=== PATIENT | female | born 1985 | race Asian ===

== ENCOUNTER 2017-10-04 01:08 | Emergency (ER) | payer MEDICARE ==
[~2017-10-04] VITALS: Ht 165.1 cm; Wt 89.4 kg
[2017-10-04] MEDS ORDERED: TRAMADOL HCL 50 MG TAB PO ONE (01:15)
[2017-10-04] MEDS ORDERED: ACETAMINOPHEN/CODEINE 300MG - 30MG TAB PO ONE (01:30)
--- NOTE | 2017-10-04 01:53 | Diagnostic Imaging Report ---
EXAM: CHEST 2 VIEWS, PA and lateral INDICATION: Left lateral rib pain after fall COMPARISON: None FINDINGS: LINES/TUBES: None LUNGS: No consolidations or edema. PLEURA: No effusions or pneumothorax. HEART AND MEDIASTINUM: Normal size and contour. BONES AND SOFT TISSUES: No acute findings. IMPRESSION: No acute thoracic abnormality. Signed by: Dr. Yusra Pool M.D. on 10/04/2017 1:49 AM
[2017-10-04 03:09] VITALS: BP 101/60
== END 2017-10-04 03:25 | disposition home or self-care (01) ==
LOC: ER 01:08
DX: S20.212A Contusion of left front wall of thorax, initial encounter (principal); S50.11XA Contusion of right forearm, initial encounter; S70.01XA Contusion of right hip, initial encounter; S40.012A Contusion of left shoulder, initial encounter; R55 Syncope and collapse; W18.39XA Other fall on same level, initial encounter; Y92.008 Other place in unspecified non-institutional (private) residence as the place of occurrence of the external cause; G47.411 Narcolepsy with cataplexy
CPT/HCPCS: 71046; 99283

== ENCOUNTER 2018-03-07 12:40 | Emergency (ER) | payer MEDICARE ==
[~2018-03-07] VITALS: Ht 165.1 cm; Wt 89.4 kg
--- OUTSIDE RECORDS SUMMARY | 2018-03-07 12:43 | XMS REPORT ---
Author Author Admin, [place] Organization [facility] Address [address] [place] [address] Phone Allergies, Adverse Reactions, Alerts Allergy Name Reaction Description Start Date Severity Status Provider No Known Allergies Bárbara Chester [employer]ER Conditions or Problems Problem Name Problem Code Onset Date Status Entry Date Provider Comment Standard Description Annotate Fibromyalgia 729.1 Active Mikayla Claudio D.O. Myalgia and myositis, unspecified Fall risk V15.88 Active Gema Monsivais MD Personal history of fall Restless leg syndrome 333.94 Active Jamil Lopez MD Restless legs syndrome (RLS) Breast pain, left 611.71 Active Kalee Kelly MD Mastodynia IUD removal V25.12 Active Kalee Kelly MD Encounter for removal of intrauterine contraceptive device Abnormal uterine bleeding 626.9 Active Kalee Kelly MD Unspecified disorders of menstruation and other abnormal bleeding from female genital tract Pelvic pain 625.9 Active Kalee Kelly MD Unspecified symptom associated with female genital organs Plantar fasciitis 728.71 Active Tawanda Kay MD Plantar fascial fibromatosis Weight gain 783.1 Active Kalee Kelly MD Abnormal weight gain BMI 35.0-35.9 Active Zoey Zimmer MD Body Mass Index 35.0-35.9, adult Knee pain, left 719.46 Active Zoey Zimmer MD Pain in joint involving lower leg Obesity Active Zoey Zimmer MD Obesity, unspecified IUD surveillance V25.42 Active Janie Rosen MD Encounter for surveillance of intrauterine contraceptive device Financial problems V60.2 Active Claudia Schwartz MD Inadequate material resources 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 Hirsutism 704.1 Active Claudia Schwartz MD Hirsutism 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, 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 Claudia Schwartz MD 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 Bipolar 1 disorder, depressed, moderate 296.52 Active Christine Layton MD Bipolar I disorder, most recent episode (or current) depressed, moderate IUD insertion ICD-V25.11 Inactive Claudia Schwartz MD SCREENING EXAMINATION FOR VENEREAL DISEASE ICD-V74.5 Inactive Claudia Schwartz MD Sexual activity, high risk ICD-V69.2 Inactive Claudia Schwartz MD Bronchitis, acute ICD-466.0 Inactive Janie Rosen MD Skin lesion ICD-709.9 Inactive Janie Rosen MD Shoulder joint pain, left ICD-719.41 Inactive Claudia Schwartz MD HEADACHE ICD-784.0 Inactive Claudia Schwartz MD NAUSEA AND VOMITING ICD-787.01 Inactive Claudia Schwartz MD SUPERVISION, OTHER NORMAL ICD-V22.1 Inactive Claudia Schwartz MD IUD insertion V25.11 Resolved Claudia Schwartz MD Encounter for insertion of intrauterine contraceptive device SCREENING EXAMINATION FOR VENEREAL DISEASE V74.5 Resolved Claudia Schwartz MD Screening examination for venereal disease Sexual activity, high risk V69.2 Resolved Claudia Schwartz MD High-risk sexual behavior Bronchitis, acute 466.0 Resolved Janie oRsen MD Acute bronchitis Skin lesion 709.9 Resolved Janie Rosen MD Unspecified disorder of skin and subcutaneous tissue of back Shoulder joint pain, left 719.41 Resolved Claudia Schwartz MD Pain in joint involving shoulder region HEADACHE 784.0 Resolved Claudia Schwartz MD Headache NAUSEA AND VOMITING 787.01 Resolved Claudia Schwartz MD Nausea with vomiting SUPERVISION, OTHER NORMAL V22.1 Resolved Claudia Schwartz MD Supervision of other normal Medication List Medication Instructions Start Date Stop Date Generic Name NDC Status Provider Patient Instruction SCOOTER Mobility Scooter SCOOTER Active Claudia Schwartz MD Active RETIN-A 0.1 % EXTERNAL CREAM apply to skin nightly TRETINOIN 71611613467 Active Claudia Schwartz MD Active ADDERALL 20 MG ORAL TABLET one tab TID AMPHETAMINE-DEXTROAMPHETAMINE 76513646846 Active Christine Layton MD Active HANDICAPP PLACARD use as directed for narcolepsy precautions HANDICAPP PLACARD Active Claudia Schwartz MD Active XYREM 500 MG/ML ORAL SOLUTION nightly SODIUM OXYBATE 33017607578 Active Claudia Schwartz MD Active MELOXICAM 7.5 MG ORAL TABLET take 1 tablet with meal once daily MELOXICAM 7.5 MG ORAL TABLET 711809 MELOXICAM Inactive REQUIP 0.5 MG ORAL TABLET take one tablet every night for 7 days take 2 tablet every night for next 7 days. Take 3 tablet every night for next 7 days REQUIP 0.5 MG ORAL TABLET 265860 ROPINIROLE HCL Inactive NAPROXEN 500 MG ORAL TABLET 1 by mouth twice a day as needed for pain and inflammation NAPROXEN 500 MG ORAL TABLET 850366 NAPROXEN Inactive REQUIP 0.25 MG ORAL TABLET Take 1 tablet once daily at night REQUIP 0.25 MG ORAL TABLET 081272 ROPINIROLE HCL Inactive VANIQA 13.9 % EXTERNAL CREAM apply BID VANIQA 13.9 % EXTERNAL CREAM EFLORNITHINE HCL Inactive IBUPROFEN 600 MG ORAL TABLET 1 By Mouth Every 8 hours As Needed pain IBUPROFEN 600 MG ORAL TABLET 509098 IBUPROFEN Inactive PROZAC 10 MG ORAL CAPSULE One capsule daily along with 20 mg cap for a total of 30 mg daily. PROZAC 10 MG ORAL CAPSULE 778052 FLUOXETINE HCL Inactive [facility] PERMETHRIN 1 % EXTERNAL LOTION Shampoo and leave on for 10 minutes then rinse, can repeat 1 week later [facility] PERMETHRIN 1 % EXTERNAL LOTION PERMETHRIN Inactive AUGUSTL 03/31 1-20 MG-MCG ORAL TABLET take one a tablet 03/31 1-20 MG-MCG ORAL TABLET 3074206 NORETHINDRONE ACET-ETHINYL EST Inactive PROZAC 40 MG ORAL CAPSULE One tablet daily. PROZAC 40 MG ORAL CAPSULE 293408 FLUOXETINE HCL Inactive DOXYCYCLINE HYCLATE 100 MG ORAL CAPSULE take one tablet daily DOXYCYCLINE HYCLATE 100 MG ORAL CAPSULE 3514315 DOXYCYCLINE HYCLATE Inactive PLAN B ONE-STEP 1.5 MG ORAL TABLET one tablet for one dose as soon as possible PLAN B ONE-STEP 1.5 MG ORAL TABLET 171486 LEVONORGESTREL Inactive AZITHROMYCIN 250 MG ORAL TABLET 2 tablets by mouth on day one then one tablet by mouth each day for a total of 5 days AZITHROMYCIN 250 MG ORAL TABLET 149526 AZITHROMYCIN Inactive NUVIGIL 250 MG ORAL TABLET one By Mouth daily NUVIGIL 250 MG ORAL TABLET 907375 ARMODAFINIL Inactive QC LORATADINE-D 10-240 MG ORAL TABLET EXTENDED RELEASE 24 HOUR one Tab Po daily for congestion QC LORATADINE-D 10-240 MG ORAL TABLET EXTENDED RELEASE 24 HOUR LORATADINE-PSEUDOEPHEDRINE Inactive TESSALON PERLES 100 MG ORAL CAPSULE 1 by mouth 3 times a day as needed for cough TESSALON PERLES 100 MG ORAL CAPSULE 093514 BENZONATATE Inactive LIDOCAINE 5 % EXTERNAL PATCH Apply daily as needed for pain LIDOCAINE 5 % EXTERNAL PATCH 9407022 LIDOCAINE Inactive MOBIC 15 MG ORAL TABLET 1 by mouth daily x 2 weeks MOBIC 15 MG ORAL TABLET 243606 MELOXICAM Inactive MIRAPEX 0.125 MG ORAL TABLET One nightly. MIRAPEX 0.125 MG ORAL TABLET 373919 PRAMIPEXOLE DIHYDROCHLORIDE Inactive RISPERIDONE 2 MG ORAL TABLET Take half a tablet nightly for a week, then increase to one tablet nightly. RISPERIDONE 2 MG ORAL TABLET 087018 RISPERIDONE Inactive CITRANATAL ASSURE 35-1 & 300 MG ORAL Take 1 tablet and 1 gelcap every day CITRANATAL ASSURE 35-1 & 300 MG ORAL PRENAT W/O [id number] Inactive DICLEGIS 10-10 MG ORAL TABLET DELAYED RELEASE Take 2 tablets at bedtime, may add 1 more tablet in the mornings if it does not work after 3 days DICLEGIS 10-10 MG ORAL TABLET DELAYED RELEASE DOXYLAMINE-PYRIDOXINE Inactive SELECT-OB+DHA 29-1 & 250 MG ORAL 1 tab and 1 gel cap by mouth once a day SELECT-OB+DHA 29-1 & 250 MG ORAL [id number] Inactive TYLENOL 325 MG ORAL TABLET take 2 tablets Three Times a Day As Needed for headache TYLENOL 325 MG ORAL TABLET 883810 ACETAMINOPHEN Inactive MELOXICAM 7.5 MG ORAL TABLET take 1 tablet with meal once daily MELOXICAM 86061524897 No Longer Active Daphnie Martinez MD (res) Active REQUIP 0.5 MG ORAL TABLET take one tablet every night for 7 days take 2 tablet every night for next 7 days. Take 3 tablet every night for next 7 days ROPINIROLE HCL 72448995952 No Longer Active Daphnie Martinez MD (res) Active NAPROXEN 500 MG ORAL TABLET 1 by mouth twice a day as needed for pain and inflammation NAPROXEN 56235633311 No Longer Active Daphnie Martinez MD (res) Active REQUIP 0.25 MG ORAL TABLET Take 1 tablet once daily at night ROPINIROLE HCL 33326657300 No Longer Active Gema Monsivais MD Active VANIQA 13.9 % EXTERNAL CREAM apply BID EFLORNITHINE HCL 79113397601 No Longer Active Gema Monsivais MD Active IBUPROFEN 600 MG ORAL TABLET 1 By Mouth Every 8 hours As Needed pain IBUPROFEN 88882133900 No Longer Active Gema Monsivais MD Active PROZAC 10 MG ORAL CAPSULE One capsule daily along with 20 mg cap for a total of 30 mg daily. FLUOXETINE HCL 54006795904 No Longer Active Christine Layton MD Active [facility] PERMETHRIN 1 % EXTERNAL LOTION Shampoo and leave on for 10 minutes then rinse, can repeat 1 week later PERMETHRIN 28326232917 No Longer Active Gema Monsivais MD Active JUNEL 03/31 1-20 MG-MCG ORAL TABLET take one a tablet NORETHINDRONE ACET-ETHINYL EST 73033938949 No Longer Active Gema Monsivais MD Active PROZAC 40 MG ORAL CAPSULE One tablet daily. FLUOXETINE HCL 29948168715 No Longer Active Gema Monsivais MD Active DOXYCYCLINE HYCLATE 100 MG ORAL CAPSULE take one tablet daily DOXYCYCLINE HYCLATE 88399597183 No Longer Active Claudia Schwartz MD Active PLAN B ONE-STEP 1.5 MG ORAL TABLET one tablet for one dose as soon as possible LEVONORGESTREL 69935649145 No Longer Active Claudia Schwartz MD Active AZITHROMYCIN 250 MG ORAL TABLET 2 tablets by mouth on day one then one tablet by mouth each day for a total of 5 days AZITHROMYCIN 54018723149 No Longer Active Claudia Schwartz MD Active NUVIGIL 250 MG ORAL TABLET one By Mouth daily ARMODAFINIL 39140290986 No Longer Active Gema Monsivais MD Active QC LORATADINE-D 10-240 MG ORAL TABLET EXTENDED RELEASE 24 HOUR one Tab Po daily for congestion LORATADINE-PSEUDOEPHEDRINE 57112605206 No Longer Active Claudia Schwartz MD Active TESSALON PERLES 100 MG ORAL CAPSULE 1 by mouth 3 times a day as needed for cough BENZONATATE 82382039160 No Longer Active Claudia Schwartz MD Active LIDOCAINE 5 % EXTERNAL PATCH Apply daily as needed for pain LIDOCAINE 83914325335 No Longer Active Claudia Schwartz MD Active MOBIC 15 MG ORAL TABLET 1 by mouth daily x 2 weeks MELOXICAM 95244935062 No Longer Active Gema Monsivais MD Active MIRAPEX 0.125 MG ORAL TABLET One nightly. PRAMIPEXOLE DIHYDROCHLORIDE 92345403571 No Longer Active Claudia Schwartz MD Active ABILIFY 20 MG ORAL TABLET Take one tablet daily. ARIPIPRAZOLE 98497947759 No Longer Active Christine Layton MD Active RISPERIDONE 2 MG ORAL TABLET Take half a tablet nightly for a week, then increase to one tablet nightly. RISPERIDONE 13091612613 No Longer Active Gema Monsivais MD Active CITRANATAL ASSURE 35-1 & 300 MG ORAL Take 1 tablet and 1 gelcap every day PRENAT W/O B-[id number]-[id number]-DHA 05083691821 No Longer Active Jose Wagner NP Active DICLEGIS 10-10 MG ORAL TABLET DELAYED RELEASE Take 2 tablets at bedtime, may add 1 more tablet in the mornings if it does not work after 3 days DOXYLAMINE-PYRIDOXINE 50970163402 No Longer Active Christine Layton MD Active SELECT-OB+DHA 29-1 & 250 MG ORAL 1 tab and 1 gel cap by mouth once a day OPH-YRWGUU-QN-DHA 48563934037 No Longer Active Christine Layton MD Active TYLENOL 325 MG ORAL TABLET take 2 tablets Three Times a Day As Needed for headache ACETAMINOPHEN 47490862754 No Longer Active Christine Layton MD Active Vital Signs Date Name Value Unit Range Description blood pressure, diastolic 73 mm[Hg] BP batres blood pressure, systolic 104 mm[Hg] BP sys height E&M 65 [in_us] Bdy height pulse rate E&M 84 /min Heart rate respiratory rate E&M 18 /min Resp rate temperature E&M 98.8 [degF] Body temperature weight E&M 210.20 [lb_av] Weight Measured blood pressure, diastolic 70 mm[Hg] BP batres blood pressure, systolic 112 mm[Hg] BP sys height E&M 65 [in_us] Bdy height pulse rate E&M 85 /min Heart rate respiratory rate E&M 18 /min Resp rate temperature E&M 98.3 [degF] Body temperature weight E&M 207 [lb_av] Weight Measured blood pressure, diastolic 75 mm[Hg] BP batres blood pressure, systolic 111 mm[Hg] BP sys height E&M 65 [in_us] Bdy height pulse rate E&M 77 /min Heart rate respiratory rate E&M 17 /min Resp rate temperature E&M 98.7 [degF] Body temperature weight E&M 209 [lb_av] Weight Measured blood pressure, diastolic 79 mm[Hg] BP batres blood pressure, systolic 111 mm[Hg] BP sys height E&M 65 [in_us] Bdy height pulse rate E&M 78 /min Heart rate respiratory rate E&M 16 /min Resp rate temperature E&M 98.3 [degF] Body temperature weight E&M 214.50 [lb_av] Weight Measured blood pressure, diastolic 66 mm[Hg] BP batres blood pressure, systolic 110 mm[Hg] BP sys height E&M 65 [in_us] Bdy height pulse rate E&M 91 /min Heart rate respiratory rate E&M 17 /min Resp rate temperature E&M 98.9 [degF] Body temperature weight E&M 215.25 [lb_av] Weight Measured Diagnostic Results Date Name Value Unit Range Description Lab Report: Profile I, Hgb Frac. Profile, Panel [id number], Cystic ... - Blood bank Rh antibody Negative Negative Lab Report: CBC With Differential/Platelet, Rheumatoid Arthritis Factor, ... - Chemistry thyroid stimulating hormone, serum 1.060 u[iU]/mL 0.450-4.500 Lab Report: Testosterone,Free and Total, FSH and LH, DHEA-Sulfate - Chemistry follicle stimulating hormone, serum 3.1 m[iU]/mL Office Visit: Acute Visit-plan B consult - Chemistry beta HCG, urine, semiquantitative negative Lab Report: Profile I, Hgb Frac. Profile, Panel [id number], Cystic ... - Blood bank ABO blood group O Lab Report: CBC With Differential/Platelet, Comp. Metabolic Panel (14), ... - Chemistry very low density lipoproteins 19 mg/dL 5-40 testosterone, total 26 ng/dL 8-48 Lab Report: Profile I, Hgb Frac. Profile, Panel [id number], Cystic ... - Genetics/fertility cystic fibrosis, screen Comment: Lab Report: Profile I, Hgb Frac. Profile, Panel [id number], Cystic ... - Chemistry hepatitis B surface antigen Negative Negative Lab Report: CBC With Differential/Platelet, Comp. Metabolic Panel (14), ... - Chemistry chloride, serum 106 mmol/L 96-106 Lab Report: Profile I, Hgb Frac. Profile, Panel [id number], Cystic ... - Hematology hemoglobin solubility test Negative Negative Lab Report: CBC With Differential/Platelet, Comp. Metabolic Panel (14), ... - Chemistry urea nitrogen, blood 11 mg/dL 6-20 Lab Report: Profile I, Hgb Frac. Profile, Panel [id number], Cystic ... - Hematology hemoglobin A2 2.4 % 0.7-3.1 Lab Report: Profile I, Hgb Frac. Profile, Panel [id number], Cystic ... - Serology HIV-1/HIV-2 Ab, serum Non Reactive Non Reactive Office Visit: Initial Visit - Urinalysis leukocyte esterase, urine, by dipstick negative Lab Report: CBC With Differential/Platelet, Rheumatoid Arthritis Factor, ... - Hematology mean corpuscular hemoglobin concentration, RBC 32.6 G/DL % 31.5-35.7 Lab Report: CBC With Differential/Platelet, Rheumatoid Arthritis Factor, ... - Serology antinuclear antibody Negative Negative Lab Report: Profile I, Hgb Frac. Profile, Panel [id number], Cystic ... - Hematology hemoglobin A 97.6 % 94.0-98.0 Lab Report: CBC With Differential/Platelet, Rheumatoid Arthritis Factor, ... - Hematology erythrocyte (RBC) count 5.02 X10E6/UL 10*6/mm3 3.77-5.28 Office Visit: Initial Visit - Urinalysis nitrite, urine, semiquantitative negative urine color yellow Lab Report: CBC With Differential/Platelet, Rheumatoid Arthritis Factor, ... - Chemistry Absolute Neutrophils 5.4 X10E3/UL 10*3/uL 1.4-7.0 Lab Report: CBC With Differential/Platelet, Rheumatoid Arthritis Factor, ... - Hematology erythrocyte sedimentation rate 2 mm/h 0-32 Office Visit: Initial Visit - Urinalysis bilirubin, urine negative Lab Report: CBC With Differential/Platelet, Comp. Metabolic Panel (14), ... - Chemistry LDL cholesterol, serum 136 mg/dL 0-99 urea nitrogen/creatinine ratio, serum 20 9-23 Lab Report: CBC With Differential/Platelet, Rheumatoid Arthritis Factor, ... - Hematology mean corpuscular volume, RBC 87 fL 79-97 Lab Report: CBC With Differential/Platelet, Comp. Metabolic Panel (14), ... - Chemistry HDL cholesterol, serum 55 mg/dL >39 Lab Report: CBC With Differential/Platelet, Rheumatoid Arthritis Factor, ... - Hematology monocytes as percent of blood leukocytes 4 % Not Estab. Lab Report: CBC With Differential/Platelet, Comp. Metabolic Panel (14), ... - Chemistry albumin/globulin ratio, serum 2.0 1.2-2.2 creatinine, serum 0.56 mg/dL 0.57-1.00 cholesterol, serum 210 mg/dL 533-071 4314/10/30 bilirubin, serum, total 0.2 mg/dL 0.0-1.2 Lab Report: Pap IG, rfx HPV ASCU - Lab Human Papillomavirus test result HPVNotTested Lab Report: CBC With Differential/Platelet, Rheumatoid Arthritis Factor, ... - Hematology Eosinophil Absolute Count 0.4 X10E3/UL 10*3/uL 0.0-0.4 Lab Report: Chlamydia/GC Amplification - Lab chlamydia DNA probe Negative Negative Office Visit: Initial Visit - Urinalysis appearance, urine clear blood in urine (hemoglobin) by dipstick trace Lab Report: CBC With Differential/Platelet, Comp. Metabolic Panel (14), ... - Chemistry aspartate aminotransferase (SGOT), serum 17 U/L 0-40 Lab Report: CBC With Differential/Platelet, Rheumatoid Arthritis Factor, ... - Hematology red blood cell distribution width 14.0 % 12.3-15.4 leukocyte count, blood 9.2 X10E3/UL 10*3/mm3 3.4-10.8 Office Visit: Initial Visit - Urinalysis pH, urine, semiquantitative 5.5 Lab Report: CBC With Differential/Platelet, Comp. Metabolic Panel (14), ... - Chemistry potassium, serum 4.7 mmol/L 3.5-5.2 Lab Report: Profile I, Hgb Frac. Profile, Panel [id number], Cystic ... - Hematology hemoglobin F 0.0 % 0.0-2.0 Office Visit: Initial Visit - Basket Operator estimated delivery date by last menstrual period 09/06/2014 Lab Report: CBC With Differential/Platelet, Rheumatoid Arthritis Factor, ... - Chemistry immature granulocytes, percentage of total cells, blood 0 % Not Estab. Lab Report: CBC With Differential/Platelet, Comp. Metabolic Panel (14), ... - Chemistry albumin, serum 4.3 g/dL 3.5-5.5 Lab Report: CBC With Differential/Platelet, Rheumatoid Arthritis Factor, ... - Hematology lymphocyte count, blood, automated 3.0 X10E3/UL 10*3/mm3 0.7-3.1 hematocrit, blood 43.5 % 34.0-46.6 Lab Report: Chlamydia/GC Amplification - Microbiology Neisseria gonorrhoeae DNA probe Negative Negative Lab Report: CBC With Differential/Platelet, Comp. Metabolic Panel (14), ... - Chemistry sodium, serum 144 mmol/L 134-144 Lab Report: Urine Culture, Routine, Result - Urinalysis urine culture Mixed urogenital elvis Lab Report: CBC With Differential/Platelet, Rheumatoid Arthritis Factor, ... - Hematology neutrophils as percent of blood leukocytes 60 % Not Estab. basophils as percent of blood leukocytes 0 % Not Estab. Office Visit: Initial Visit - Urinalysis protein, urine, semiquantitative (dipstick) negative Lab Report: Profile I, Hgb Frac. Profile, Panel [id number], Cystic ... - Serology rapid plasma reagin antibody, serum Non Reactive Non Reactive rubella antibody, serum, IgG 3.17 Immune >0.99 Lab Report: CBC With Differential/Platelet, Comp. Metabolic Panel (14), ... - Chemistry carbon dioxide, venous blood 26 mmol/L 18-29 triglyceride, serum, fasting 96 mg/dL 0-149 calcium, serum 9.1 mg/dL 8.7-10.2 alanine aminotransferase (SGPT), serum 23 U/L 0-32 Lab Report: CBC With Differential/Platelet, Rheumatoid Arthritis Factor, ... - Hematology mean corpuscular hemoglobin, RBC 28.3 pg 26.6-33.0 Lab Report: Profile I, Hgb Frac. Profile, Panel [id number], Cystic ... - Hematology hemoglobin S 0.0 % 0.0 Office Visit: Initial Visit - Urinalysis specific gravity, urine 1.030 Lab Report: CBC With Differential/Platelet, Comp. Metabolic Panel (14), ... - Chemistry protein, total, serum 6.4 g/dL 6.0-8.5 dehydroepiandrosterone sulfate, serum 256.5 ug/dL 84.8-378.0 alkaline phosphatase, serum 76 U/L 39-117 Lab Report: CBC With Differential/Platelet, Rheumatoid Arthritis Factor, ... - Hematology hemoglobin, blood 14.2 g/dL 11.1-15.9 Lab Report: CBC With Differential/Platelet, Rheumatoid Arthritis Factor, ... - Chemistry c-reactive protein, quantitative, serum 1.7 mg/L 0.0-4.9 Lab Report: Profile I, Hgb Frac. Profile, Panel [id number], Cystic ... - Blood bank Rh antigen Positive Lab Report: CBC With Differential/Platelet, Rheumatoid Arthritis Factor, ... - Hematology lymphocytes as percent of blood leukocytes 32 % Not Estab. Office Visit: Initial Visit - Basket Operator estimated date of confinement , mother of baby 09/06/2014 Office Visit: Initial Visit - Urinalysis glucose, urine, semiquantitative negative Lab Report: CBC With Differential/Platelet, Comp. Metabolic Panel (14), ... - Genetics/fertility eGFR if 144 mL/min/1.73m2 >59 Lab Report: CBC With Differential/Platelet, Rheumatoid Arthritis Factor, ... - Hematology basophil count, absolute 0.0 x10E3/uL 0.0-0.2 Lab Report: CBC With Differential/Platelet, Comp. Metabolic Panel (14), ... - Chemistry globulin, serum 2.1 1.5-4.5 Estimated Glomerular Filtration Rate (calc) 125 mL/min/1.73m2 >59 Lab Report: Testosterone,Free and Total, FSH and LH, DHEA-Sulfate - Chemistry testosterone, serum, free 2.0 pg/mL 0.0-4.2 luteinizing hormone, serum 9.3 m[iU]/mL Lab Report: CBC With Differential/Platelet, Rheumatoid Arthritis Factor, ... - Hematology eosinophils as percent of blood leukocytes 4 % Not Estab. Lab Report: CBC With Differential/Platelet, Comp. Metabolic Panel (14), ... - Chemistry blood glucose, random 90 mg/dL 65-99 Office Visit: Initial Visit - Urinalysis urobilinogen, urine, semiquantitative (dipstick) 0.2 Lab Report: CBC With Differential/Platelet, Rheumatoid Arthritis Factor, ... - Serology rheumatoid factor <10.0 IU/mL [iU]/mL 0.0-13.9 Lab Report: Profile I, Hgb Frac. Profile, Panel [id number], Cystic ... - Hematology hemoglobin C 0.0 % 0.0 Lab Report: CBC With Differential/Platelet, Rheumatoid Arthritis Factor, ... - Hematology monocyte count, blood, automated 0.4 X10E3/UL 10*3/uL 0.1-0.9 platelet count 223 X10E3/UL 10*3/mm3 150-379 Office Visit: Initial Visit - Urinalysis ketones, urine, by test strip negative Encounters Date Encounter Provider Code Facility 11:49:46 CDT Est Patient Exp Problem - 74084 Daphnie Martinez MD (res) CPT-81745 [facility] 14:41:28 CDT Est Patient Exp Problem - 13467 Mikayla Claudio D.O. CPT-83066 [facility] 05:21:00 [employer] Est Patient Exp Problem - 76660 Gema Monsivais MD CPT-68303 [facility] 09:40:09 [employer] Est Patient Exp Problem - 70615 Jamil Lopez MD CPT-77612 [facility] 16:40:54 [employer] Est Patient Problem Focus - 23914 Kalee Kelly MD CPT-06430 [facility] 15:42:56 CDT Est Patient Problem Focus - 65929 Kalee Kelly MD CPT-39132 [facility] 13:41:48 CDT Est Patient Exp Problem - 01170 Tawanda Kay MD CPT-98028 [facility] 12:00:50 CDT Est Patient Exp Problem - 00288 Zoey Zimmer MD CPT-26955 [facility] 14:07:19 CDT Est Patient Problem Focus - 09449 Claudia Schwartz MD CPT-56642 [facility] 14:05:37 CDT Est Patient Exp Problem - 72036 Christine Layton MD CPT-98019 [facility] 15:05:10 CDT Est Patient Exp Problem - 60825 Christine Layton MD CPT-15675 [facility] 22:14:09 CDT Est Patient Exp Problem - 48226 Janie Rosen MD CPT-74649 [facility] 11:40:56 CDT Est Patient Exp Problem - 05772 Claudia Schwartz MD CPT-37482 [facility] 13:58:02 CDT Est Patient Exp Problem - 29912 Claudia Schwartz MD CPT-42505 [facility] 16:07:32 [employer] Est Patient Detailed - 89186 Nenita Alvarez MD CPT-06063 [facility] 10:49:42 [employer] Est Patient Exp Problem - 15320 Claudia Schwartz MD CPT-26750 [facility] 13:43:18 [employer] Est Patient Detailed - 84806 Claudia Schwartz MD CPT-90068 [facility] 22:10:27 [employer] Est Patient Exp Problem - 48749 Christine Layton MD CPT-02861 [facility] 14:57:53 [employer] Est Patient Detailed - 83488 Claudia Schwartz MD CPT-36428 [facility] 10:15:35 [employer] Est Patient Exp Problem - 62808 Christine Layton MD CPT-26323 [facility] 11:09:38 [employer] New Patient Detailed - 70329 Jose Wagner NP CPT-56541 [facility] [facility] Procedures Code Procedure Name Date Entry Date Standard Description CPT-03855 IUD Removal 16:51:21 [employer] CPT-10700 Insertion of intrauterine device (IUD) 13:26:14 CDT CPT-J7300 Intrauterine copper contraceptive 13:26:13 CDT CPT-81848 Diagnostic evaluation (no medical) - 74329 12:11:01 [employer] CPT-30175 Diagnostic evaluation with medical - 33034 14:31:49 CDT CPT-53014 Handling of specimen for transfer 11:09:38 [employer] CPT-94050 Venipuncture 11:09:38 [employer] CPT-21096 Urinalysis - Dip only - In House 11:09:38 [employer]
--- OUTSIDE RECORDS SUMMARY | 2018-03-07 12:43 | XMS REPORT ---
Author Author [facility] Address Unknown Phone Unavailable Care Team Providers Care Inspector Aligning Name Role Phone Elysia MCMANUS Unavailable Unavailable Problems This patient has no known problems. Allergies, Adverse Reactions, Alerts This patient has no known allergies or adverse reactions. Medications This patient has no known medications. Results Test Description Test Time Test Comments Text Results Atomic Results Result Comments CHEST 2 VIEWS 2017-10-04 01:47:00 [place] [address] Patient Name: J LUIS VIZCAINO MR #: [id number] : 1985 Age/Sex: 31/F Req #: [id number] Adm Physician: Ordered by: RODDY MCMANUS MD Report #: [id number] Location: ER Room/Bed: Procedure: [id number] DX/CHEST 2 VIEWS Exam Date: 10/04/17 Exam Time: 0135 REPORT STATUS: Signed EXAM: CHEST 2 VIEWS, PA and lateral INDICATION: Left lateral rib pain after fall COMPARISON: None FINDINGS: LINES/TUBES: None LUNGS: No consolidations or edema. PLEURA: No effusions or pneumothorax. HEART AND MEDIASTINUM: Normal size and contour. BONES AND SOFT TISSUES: No acute findings. IMPRESSION: No acute thoracic abnormality. Signed by: Dr. Flako Pool M.D. on 10/04/2017 1:49 AM Dictated By: FLAKO POOL MD 8 Transcribed By: SUKHWINDER on 10/04/17148 COPY TO: RODDY MCMANUS MD
[2018-03-07] MEDS ORDERED: ADDERALL 10 MG10 MG (12:59)
--- NOTE | 2018-03-07 14:22 | Diagnostic Imaging Report ---
EXAMINATION: CT of the abdomen and pelvis without contrast. TECHNIQUE: Spiral CT images of the abdomen and pelvis were performed from the lung bases to the lesser trochanters. No intravenous contrast was given per renal stone protocol. Coronal and sagittal reformatted images were obtained. Low-dose technique was utilized with dose sparing technology. DLP: 752.20 mGy-cm COMPARISON: None. CLINICAL HISTORY: Right flank pain DISCUSSION: ABSENCE OF INTRAVENOUS CONTRAST DECREASES SENSITIVITY FOR DETECTION OF FOCAL LESIONS AND VASCULAR PATHOLOGY. ABDOMEN/PELVIS: LOWER THORAX: Unremarkable. HEPATOBILIARY:No focal hepatic lesions. No biliary ductal dilation. The gallbladder is normal. SPLEEN: No splenomegaly. PANCREAS: No focal masses or ductal dilatation. ADRENALS: No adrenal nodules. KIDNEYS/URETERS: No hydronephrosis, stones, or solid mass lesions. Tiny calcification is seen in the right pelvis near the UVJ which likely represents a nonobstructing distal ureteral stone. There is no hydronephrosis. PELVIC ORGANS/BLADDER: The bladder is normal. PERITONEUM/RETROPERITONEUM: No free air or fluid. LYMPH NODES: No intra-abdominal,retroperitoneal, pelvic or inguinal lymphadenopathy. VESSELS: No abnormality GI TRACT: No distention or wall thickening. BONES AND SOFT TISSUES: No bony destructive lesions. No soft tissue abnormalities. IMPRESSION: Tiny nonobstructing right distal ureteral stone. Signed by: Dr. Gerardo Wu DO on 03/07/2018 2:19 PM
[2018-03-07] MEDS ORDERED: DEPAKOTE125 MG (15:30)
[2018-03-07] MEDS ORDERED: GEODON20 MG (15:30)
[2018-03-07] MEDS ORDERED: RISPERDAL1 MG PO (15:30)
== END 2018-03-07 14:45 | disposition home or self-care (01) ==
LOC: FSED 12:40
DX: R30.0 Dysuria (principal); R10.9 Unspecified abdominal pain; M54.5 Low back pain; N20.0 Calculus of kidney; B37.3 Candidiasis of vulva and vagina
CPT/HCPCS: 74176; 81003; 81025; 99284

== ENCOUNTER 2022-01-24 09:10 | Emergency (ER) | payer MEDICARE, OTHER ==
[~2022-01-24] VITALS: Ht 165.1 cm; Wt 89.4 kg
[~2022-01-24 09:10] MED LIST: ADDERALL 10 MG10 MG; DEPAKOTE125 MG; GEODON20 MG; RISPERDAL1 MG PO
== END 2022-01-24 10:46 | disposition home or self-care (01) ==
LOC: ER 09:15
DX: N81.4 Uterovaginal prolapse, unspecified (principal)
CPT/HCPCS: 99282